=== PATIENT | female | born 1955 | race Caucasian/White ===

== ENCOUNTER 2021-09-13 08:16 | Emergency (ER) | payer MEDICARE ==
[2021-09-13 09:06] LABS: HEMOGLOBIN 15.8 gm/dl (12.3-15.3); RED BLOOD COUNT 5.3 M/UL (4.00-5.10); WHITE BLOOD COUNT 5.9 K/UL (4.5-11.0)
[2021-09-13 09:42] LABS: BUN/CREATININE RATIO 23 (0-10)
[2021-09-13] MEDS ORDERED: HYDROCODON-ACE1 EAC4 PO (12:02)
[2021-09-13] MEDS ORDERED: ZOFRAN ODT 4 MG4 MG SL (12:02)
== END 2021-09-13 12:18 | disposition home or self-care (01) ==
LOC: ER1 08:16
PROVIDERS: Emergency Medicine
DX: K80.20 Calculus of gallbladder without cholecystitis without obstruction (principal)
CPT/HCPCS: 76705; 80053; 81001; 83690; 84484; 85025; 86140; 99284